=== PATIENT | male | born 1995 | race Caucasian/White ===

== ENCOUNTER → 2020-10-31 | Emergency (ER) | payer OTHER ==
[~2020-10-31] MED LIST: DIPHTH,PERTUSS(ACELL),TET 0.5 ML DISP.SYRIN IM ONE; IBUPROFEN 600 MG TABLET (FP) PO ONE
[2020-10-31 16:07] VITALS: BP 111/73; PULSE 100; TEMP 98.1; BMI 31.9
== END | disposition home or self-care (01) ==
LOC: JER 15:55 → JERFT 15:55
PROC: 3E0234Z Introduction of Serum, Toxoid and Vaccine into Muscle, Percutaneous Approach (ICD-10-PCS; principal; 2020-10-31)
DX: S60.812A Abrasion of left wrist, initial encounter (principal); W26.8XXA Contact with other sharp object(s), not elsewhere classified, initial encounter; Y92.9 Unspecified place or not applicable
CPT/HCPCS: 73110-TC-LT-FY; 73130-TC-LT-FY; 90471; 90715; 99284-25